=== PATIENT | female | born 1980 | race Caucasian/White ===

== ENCOUNTER 2017-06-19 18:14 | Emergency (ER) | payer MEDICAID ==
--- NOTE | 2017-06-19 19:27 | EDPHY ---
H & P Stated Complaint: Rolled R ankle jogging this afternoon, no other injuries Time Seen by Provider: 06/19/17 19:26 - Personal History LMP (Females 10-55): 8-14 Days Ago Current Tetanus/Diphtheria Vaccine: Unsure Current Tetanus Diphtheria and Acellular Pertussis (TDAP): Unsure - Medical/Surgical History Hx Asthma: No Hx Chronic Respiratory Disease: No Hx Diabetes: No Hx Cardiac Disease: No Hx Renal Disease: No Hx Cirrhosis: No Hx Alcoholism: No Hx HIV/AIDS: No Hx Splenectomy or Spleen Trauma: No Other PMH: denies - Social History Smoking Status: Current some day smoker Constitutional: Initial Vital Signs Temperature (C) 37.0 C 06/19/17 18:17 Respiratory Rate 16 06/19/17 18:17 Blood Pressure 148/82 H 06/19/17 18:17 O2 Sat (%) 98 06/19/17 18:17 O2 Delivery Mode Room Air Allergies/Adverse Reactions: No Known Allergies Allergy (Unverified 06/19/17 18:16) Home Medications: Medication Instructions Recorded NK [No Known Home Meds] 06/19/17 Medical Decision Making - Diagnostics Imaging Results: Imaging Impressions Ankle X-Ray 06/19/17 18:20 Impression: No acute osseous findings. ED Course/Re-evaluation: CHIEF COMPLAINT: HISTORY OF PRESENT ILLNESS: must have 4 elements: Location, Quality, Severity , Duration, Timing, Context, Modifying Factors, Associated Signs and Symptoms REVIEW OF SYSTEMS: A 10 point review of systems was performed and is negative with the exception of the elements mentioned in the history of present illness. PHYSICAL EXAM: HR, BP, O2 Sat, RR. Temp noted General Appearance: Alert, well hydrated, appropriate, and non-toxic appearing. Head: Atraumatic without scalp tenderness or obvious injury Eyes: Pupils equal, round, reactive to light and accommodation, EOMI, no trauma , no injection. Ears: Clear bilaterally, no perforation, normal landmarks Nose: Atraumatic, no rhinorrhea, clear. Throat: There is no erythema or exudates, no lesions, normal tonsils, mucus membranes moist. Neck: Supple, 2+ carotid upstroke, nontender, no lymphadenopathy. Respiratory: No retractions, no distress, no wheezes, and no accessory muscle use. Lungs are clear to auscultation bilaterally. Cardiovascular: Regular rate and rhythm, no murmurs, rubs, or gallops. Bilateral carotid, radial, dorsalis pedis, and posterior tibial pulses intact. Good capillary refill all extremities. Gastrointestinal: Abdomen is soft, nontender, non-distended, no masses, no rebound, no guarding, no peritoneal signs. Musculoskeletal: Normal active ROM of all extremities, atraumatic. Neurological: Alert, appropriate, and interactive. The patient has normal DTRs and non-focal cranial nerves, motor, sensory, and cerebellar exam. Skin: No rashes, good turgor, no nodules on palpation. Past medical history: Past surgical history: Family history: Social history: DIAGNOSTICS/PROCEDURES/CRITICAL CARE TIME: DIFFERENTIAL DIAGNOSIS: MEDICAL DECISION MAKING:
--- NOTE | 2017-06-19 20:26 | EDPHY ---
H & P Stated Complaint: Rolled R ankle jogging this afternoon, no other injuries Time Seen by Provider: 06/19/17 19:26 HPI/ROS: Chief complaint: Right foot and ankle injury History of present illness: This is a 36-year-old female who presents to the emergency department for right foot and ankle injury. Earlier today she was jogging when she rolled her foot and ankle. Since then she has had pain to the front of the foot radiating up into the ankle. It makes it difficult to ambulate. No report of open wound. No reported paresthesias or abnormal coolness. No other injuries reported. - Personal History LMP (Females 10-55): 8-14 Days Ago Current Tetanus/Diphtheria Vaccine: Unsure Current Tetanus Diphtheria and Acellular Pertussis (TDAP): Unsure - Medical/Surgical History Hx Asthma: No Hx Chronic Respiratory Disease: No Hx Diabetes: No Hx Cardiac Disease: No Hx Renal Disease: No Hx Cirrhosis: No Hx Alcoholism: No Hx HIV/AIDS: No Hx Splenectomy or Spleen Trauma: No Other PMH: denies - Social History Smoking Status: Current some day smoker - Physical Exam Exam: General appearance: Alert, nontoxic Musculoskeletal: No deformities of the right lower extremity. Mild tenderness over the dorsum of the right foot and anterior aspect of the ankle. She can move the digits the foot and moved the ankle. The Achilles tendon is nontender and there is no defects. Rest of the lower extremities unremarkable. Vascular exam: Normal pulses and capillary refill in the foot Neurologic exam: The patient has normal sensation and motor function distal to the injury. Constitutional: Initial Vital Signs Temperature (C) 37.0 C 06/19/17 18:17 Respiratory Rate 16 06/19/17 18:17 Blood Pressure 148/82 H 06/19/17 18:17 O2 Sat (%) 98 06/19/17 18:17 O2 Delivery Mode Room Air Allergies/Adverse Reactions: No Known Allergies Allergy (Unverified 06/19/17 18:16) Home Medications: Medication Instructions Recorded NK [No Known Home Meds] 06/19/17 Medical Decision Making - Diagnostics Imaging Results: Imaging Impressions Ankle X-Ray 06/19/17 18:20 Impression: No acute osseous findings. Foot X-Ray 06/19/17 19:51 Impression: 1. No definite acute fracture. 2. Consider additional imaging if symptoms persist, if clinically indicated. Imaging: I viewed and interpreted images myself Procedures: Procedure: Splint placement. A postop shoe splint was applied. After application of the splint I returned and re-examined the patient. The splint was adequately immobilizing the joint and distal to the splint the patient's circulation and sensation was intact. ED Course/Re-evaluation: Patient seen under the supervision of my secondary supervising physician Dr. Mendoza Christensen. Patient presents to the emergency department for a right foot and ankle injury. The region is neurovascularly intact. X-rays are negative. Likely sprain/strain. She is placed in a walking shoe. Home care is discussed. Return precautions are given. Differential Diagnosis: Include but not limited to contusion, sprain or strain, bony fracture, joint dislocation - Data Points Medications Given: Discontinued Medications Ibuprofen (Motrin) 600 mg PO EDNOW ONE Stop: 06/19/17 20:44 Last Admin: 06/19/17 20:56 Dose: 600 mg Departure - Departure Disposition: Home, Routine, Self-Care Clinical Impression: Foot sprain Qualifiers: Encounter type: initial encounter Laterality: right Qualified Code(s): S93.601A - Unspecified sprain of right foot, initial encounter Condition: Good Instructions: Foot Sprain (ED) Additional Instructions: Follow-up with your primary care doctor for recheck Use [id number] ibuprofen, 600 mg 3 times a day for the next 2-3 days for pain Ice the injury, 20 minutes on, 3 times daily for the next 3 days Elevate the injury as much as possible for the next few days If symptoms worsen or new symptoms develop return to the emergency room for recheck Referrals: TASHA JONES [Other] - As per Instructions Stand Alone Forms: Work Excuse
[2017-06-19] MEDS ORDERED: IBUPROFEN 600 MG TAB PO ONE (20:43)
[2017-06-19 21:03] VITALS: BP 134/92; PULSE 63; RESP 18; TEMP 97.9; O2SAT 96
== END 2017-06-19 21:02 | disposition home or self-care (01) ==
DX: S93.601A Unspecified sprain of right foot, initial encounter (principal); F17.200 Nicotine dependence, unspecified, uncomplicated; X58.XXXA Exposure to other specified factors, initial encounter; Y99.8 Other external cause status; Y93.89 Activity, other specified
CPT/HCPCS: L4386